=== PATIENT | male | born 1965 | race Caucasian/White ===

== ENCOUNTER 2021-01-05 15:43 | Outpatient (CLI) | payer BC | END 2021-01-05 15:44 | disposition home or self-care (01) | LOC: CSHMRI 15:43 | PROVIDERS: ATTEND Orthopaedic Surgery | DX: M79.601 Pain in right arm (principal); Z98.1 Arthrodesis status; M47.812 Spondylosis without myelopathy or radiculopathy, cervical region; M48.02 Spinal stenosis, cervical region | CPT/HCPCS: 72141 ==

== ENCOUNTER 2023-10-06 15:44 | Outpatient (CLI) | payer BC | END 2023-10-06 15:45 | disposition home or self-care (01) | LOC: CSHCT 15:44 | PROVIDERS: ATTEND Neurological Surgery | DX: Q76.5 Cervical rib (principal); Z98.1 Arthrodesis status; M47.812 Spondylosis without myelopathy or radiculopathy, cervical region; M48.02 Spinal stenosis, cervical region | CPT/HCPCS: 72125 ==